=== PATIENT | male | born 1995 | race Caucasian/White ===

== ENCOUNTER 2018-11-21 15:14 | Emergency (ER) | payer SELFPAY ==
[~2018-11-21] VITALS: Ht 182.8 cm; Wt 74.8 kg
== END 2018-11-21 16:56 | disposition home or self-care (01) ==
LOC: ED 15:14
DX: S56.422A Laceration of extensor muscle, fascia and tendon of left index finger at forearm level, initial encounter (principal); F17.200 Nicotine dependence, unspecified, uncomplicated; W23.0XXA Caught, crushed, jammed, or pinched between moving objects, initial encounter; Y93.89 Activity, other specified; Y92.89 Other specified places as the place of occurrence of the external cause; Y99.8 Other external cause status